=== PATIENT | female | born 1970 | race American Indian/Alaskan Native ===

== ENCOUNTER 2020-06-21 16:52 | Emergency (ER) | payer OTHER ==
[2020-06-21 17:30] VITALS: BP 144/77
[2020-06-21] MEDS ORDERED: ONDANSETRON 4 MG/2 ML INJ IV ONE (17:53)
[2020-06-21 18:28] LABS: Hematocrit 36.2 % (30.3-42.9); Hemoglobin 11.6 gm/dl (10.1-14.3); Mean Corpuscular HGB Conc 32 % (30-34); Mean Corpuscular Volume 83 fl (79-97); Platelet Count 390 K/mm3 (140-440); Red Blood Count 4.37 M/mm3 (3.65-5.03); Red Cell Distribution Width 14.4 % (13.2-15.2)
--- NOTE | 2020-06-21 18:29 | Cat Scan Report ---
CT head/brain wo con INDICATION / CLINICAL INFORMATION: 50 years Female; Syncope. TECHNIQUE: Routine CT head without contrast. All CT scans at this location are performed using CT dos e reduction for ALARA by means of automated exposure control. COMPARISON: None. FINDINGS: BRAIN / INTRACRANIAL CONTENTS: No acute hemorrhage, mass effect, midline shift, hydrocephalus, or acu te, large territorial infarct. No chronic infarct or atrophy appreciated. No significant white matter abnormality. CRANIOCERVICAL JUNCTION: No significant abnormality. ORBITS: No significant abnormality of visualized orbits. SINUSES / MASTOIDS: No significant abnormality in the visualized paranasal sinuses or mastoid air liliana ls. ADDITIONAL FINDINGS: None. IMPRESSION: 1. No focal mass, hemorrhage, hydrocephalus, or acute, large territorial infarct. Signer Name: Иван Ramírez MD, III Signed: 06/21/2020 6:24 PM Workstation Name: [id number]
[2020-06-21 18:52] LABS: Alanine Aminotransferase 19 units/L (7-56); Albumin 4.2 g/dL (3.9-5); BUN/Creatinine Ratio 15; Blood Urea Nitrogen 16 mg/dL (7-17); Calcium 9.6 mg/dL (8.4-10.2); Hemolysis Index 24
--- NOTE | 2020-06-21 19:48 | Emergency Department Report ---
HPI - General Chief Complaint: Syncope Time Seen by Provider: 06/21/20 17:00 - HPI HPI: This is a 50-year-old -[place] female who presents to the emergency department via EMS from home with a complaint of a syncopal episode, some dizziness and nausea without vomiting. The patient was sitting on the toilet trying to have a bowel movement but was unsuccessful. She says that at that time she started feeling slightly dizzy. She got up to go into another room and says that she passed out. She woke up with her children standing over her. They asked her if she wanted for EMS to be called and she thinks that she answered yes. She then says she came to with EMS standing over her and they transported her here for further evaluation. Patient still has some mild dizziness and some nausea. She did not take anything or receive anything for s ymptoms prior to presentation. The patient has a history of an umbilical hernia that was repaired with a mesh and says that she has some chronic abdominal cramping or discomfort related to that surgery. She says that it feels like she always has to go to the bathroom. However she does admit that she has had increased bowel movements recently. Patient had 2 successful bowel movements upon arrival to our emergency department. She denies any chest pain, shortness of breath, headache, vision change, slurred speech, numbness or paresthesias, or any other neurological deficits. ED Past Medical Hx - Past Medical History Previous Medical History?: Yes Hx Hypertension: Yes Additional medical history: anemia. elevated cholestrol - Surgical History Past Surgical History?: Yes Hx Cholecystectomy: Yes Additional Surgical History: 2012- hernia repair. : 1988 - Social History Smoking Status: Never Smoker Substance Use Type: None ED Review of Systems ROS: Stated complaint: DIZZINESS Other details as noted in HPI Comment: All other systems reviewed and negative Constitutional: denies: chills, fever Eyes: denies: eye pain, vision change ENT: denies: ear pain, throat pain Respiratory: denies: cough, shortness of breath Cardiovascular: syncope. denies: chest pain, palpitations Gastrointestinal: abdominal pain, nausea. denies: vomiting Genitourinary: denies: dysuria, discharge Musculoskeletal: denies: back pain, arthralgia Skin: denies: rash, lesions Neurological: denies: headache, numbness, paresthesias Physical Exam - Physical Exam Vital Signs: Vital Signs 06/21/20 17:23 Temperature 98.3 F Pulse Rate 75 Respiratory 18 Rate Blood Pressure 144/77 O2 Sat by Pulse 97 Oximetry Physical Exam: GENERAL: The patient is well-developed well-nourished. HENT: Normocephalic. Atraumatic. Patient has moist mucous membranes. EYES: Extraocular motions are intact. NECK: Supple. Trachea is midline. CHEST/LUNGS: Clear to auscultation. There is no respiratory distress noted. HEART/CARDIOVASCULAR: Regular. There is no tachycardia. There is no murmur. ABDOMEN: Abdomen is soft. Mild periumbilical tenderness. No guarding. Patient has normal bowel sounds. There is no abdominal distention. SKIN: Skin is warm and dry. NEURO: The patient is awake, alert, and oriented. The patient is cooperative. The patient has no focal neurologic deficits. Normal speech. Cranial nerves II through XII grossly intact. MUSCULOSKELETAL: There is no tenderness or deformity. There is no limitation range of motion. ED Course Vital Signs 06/21/20 17:23 Temperature 98.3 F Pulse Rate 75 Respiratory 18 Rate Blood Pressure 144/77 O2 Sat by Pulse 97 Oximetry ED Medical Decision Making - Lab Data Result diagrams: 06/21/20 18:09 06/21/20 18:09 - EKG Data -: EKG Interpreted by Me EKG shows normal: sinus rhythm, axis, intervals, QRS complexes, ST-T waves Rate: normal - EKG Data When compared to previous EKG there are: previous EKG unavailable Interpretation: normal EKG - Radiology Data Radiology results: report reviewed, image reviewed interpreted by me: Abdominal x-ray shows nonspecific nonobstructive bowel gas CT head/brain wo con INDICATION / CLINICAL INFORMATION: 50 years Female; Syncope. TECHNIQUE: Routine CT head without contrast. All CT scans at this location are performed using CT dose reduction for ALARA by means of automated exposure control. COMPARISON: None. FINDINGS: BRAIN / INTRACRANIAL CONTENTS: No acute hemorrhage, mass effect, midline shift, hydrocephalus, or acute, large territorial infarct. No chronic infarct or atrophy appreciated. No significant white matter abnormality. CRANIOCERVICAL JUNCTION: No significant abnormality. ORBITS: No significant abnormality of visualized orbits. SINUSES / MASTOIDS: No significant abnormality in the visualized paranasal sinuses or mastoid air cells. ADDITIONAL FINDINGS: None. IMPRESSION: 1. No focal mass, hemorrhage, hydrocephalus, or acute, large territorial infarct. - Medical Decision Making This patient presents to the emergency department after what appears to be a syncopal episode while either trying to use the bathroom or just after getting up from the toilet. Since being in the emergency department the patient has been awake, alert, oriented. She does not have any focal, motor or sensory deficits and her cranial nerves are intact. CT scan of the head did not show any bleed, shift, mass, ischemia, or any other acute process. Abdominal x-ray was done secondary to some recent history of straining to use the bathroom, followed by multiple bowel movements, but it does not show any acute process. Patient's labs are mostly unremarkable except for a leukocytosis of about 20,000. Patient's vital signs have been reassuring including being afebrile. There is been no other source of infection seen and this may be reactive to the patient's syncopal episode and fall to the ground. The rest of her labs have been unremarkable including metabolic panel, troponin and TSH level. She has been reevaluated multiple times over multiple hours and is feeling greatly improved. She has been seen ambulatory in the emergency department and both appears and feels stable. She will be discharged home to follow-up with her primary care physician. She will return to the ER with any worsening of her symptoms or with any acute distress. Critical Care Time: No Critical care attestation.: If time is entered above; I have spent that time in minutes in the direct care of this critically ill patient, excluding procedure time. ED Disposition Clinical Impression: Nausea, Dizziness Syncope Qualifiers: Syncope type: unspecified Qualified Code(s): R55 - Syncope and collapse Disposition: DC-01 TO HOME OR SELFCARE Is pt being admited?: No Condition: Stable Instructions: Syncope (ED), Lightheadedness (ED), Dizziness (ED) Additional Instructions: Please follow-up with your primary care physician in the next few days. Return to the emergency department with any worsening of your symptoms, any further episodes of passing out, or with any acute distress. Referrals: PRIMARY CARE, [Primary Care Provider] - 2-3 Days
--- NOTE | 2020-06-21 19:53 | XRay Report ---
ABDOMEN 3 VIEW(S) INDICATION / CLINICAL INFORMATION: Abd pain. COMPARISON: None available. FINDINGS: TUBES / LINES: None. BOWEL GAS PATTERN: No significant abnormality. FREE AIR / EXTRALUMINAL GAS: None seen. ADDITIONAL FINDINGS: No significant additional findings. CHEST: Visualized chest shows no significant abnormality. IMPRESSION: No significant abnormality. Signer Name: Soto Martinez MD Signed: 06/21/2020 7:49 PM Workstation Name: [id number]
[2020-06-21 21:16] LABS: Total Cells Counted 100
[2020-06-21 21:17] LABS: Band Neutrophils # (Manual) 0.4 K/mm3; Basophils % (Manual) 0 % (0.0-1.8); Eosinophils % (Manual) 0 % (0.0-4.3); Platelet Estimate Consistent w Auto
== END 2020-06-21 21:45 | disposition home or self-care (01) ==
LOC: ED 16:52
DX: R55 Syncope and collapse (principal); R42 Dizziness and giddiness; R11.2 Nausea with vomiting, unspecified; I10 Essential (primary) hypertension; Z90.49 Acquired absence of other specified parts of digestive tract; Z98.890 Other specified postprocedural states
CPT/HCPCS: 36415; 70450; 74019; 80053; 84443; 84484; 85007; 85025; 93005; 96374; 99285; J2405